=== PATIENT | male | born 1970 | race Caucasian/White ===

== ENCOUNTER 2018-01-21 17:25 | Emergency (ER) | payer OTHER ==
[~2018-01-21] VITALS: Ht 170.2 cm; Wt 72.6 kg
[2018-01-21] MEDS ORDERED: MOTRIN IB200 MG (17:52)
== END 2018-01-21 19:21 | disposition home or self-care (01) ==
LOC: ER 17:25
DX: M54.5 Low back pain (principal)

== ENCOUNTER 2018-05-04 18:58 | Emergency (ER) | payer OTHER ==
[~2018-05-04] VITALS: Ht 165.1 cm; Wt 77.1 kg
[~2018-05-04 18:58] MED LIST: MOTRIN IB200 MG
[2018-05-04] MEDS ORDERED: NOVOLIN R100 UNIT/1 (20:01)
[2018-05-04] MEDS ORDERED: LEVOTHYROXINE25 MCG (20:01)
[2018-05-04] MEDS ORDERED: NOVOLIN N100 UNIT/1 (20:01)
== END 2018-05-05 01:21 | disposition home or self-care (01) ==
LOC: ER 18:58
DX: K52.9 Noninfective gastroenteritis and colitis, unspecified (principal)

== ENCOUNTER 2022-05-20 12:12 | Emergency (ER) | payer OTHER ==
[~2022-05-20] VITALS: Ht 170.2 cm; Wt 72.6 kg
[~2022-05-20 12:12] MED LIST changes: +LEVOTHYROXINE25 MCG; +NOVOLIN N100 UNIT/1; +NOVOLIN R100 UNIT/1
[2022-05-20] MEDS ORDERED: ADMELOG100 UNIT/1 SQ (13:01)
[2022-05-20] MEDS ORDERED: LEVOTHYROXINE88 MCG PO (13:01)
[2022-05-20] MEDS ORDERED: HUMULIN N100 UNIT/2 (13:01)
[2022-05-20] MEDS ORDERED: LANTUS SOL100 UNIT/1 (13:02)
[2022-05-20] MEDS ORDERED: ATIVAN0.5 M1 PO (13:02)
== END 2022-05-20 16:34 | disposition home or self-care (01) ==
LOC: ER 12:12
DX: M62.830 Muscle spasm of back (principal)